=== PATIENT | male | born 1985 | race Two or more races ===

== ENCOUNTER 2017-12-21 07:57 | Emergency (ER) | payer SELFPAY ==
[~2017-12-21] VITALS: Ht 162.6 cm; Wt 73.0 kg
[2017-12-21 08:00] VITALS: BP 128/88
[2017-12-21] MEDS ORDERED: LIDOcaine 1.5% w/epinephrine 1:200,000 5ml ampul IJ ONE (08:15)
[2017-12-21] MEDS ORDERED: TETanus/Pertussis (Acell)/Diphther VAC/PF (Tdap-Adult) 0.5ml syringe IM ONE (08:15)
[2017-12-21] MEDS ORDERED: CEPH250T PO (08:39)
[2017-12-21] MEDS ORDERED: SULF1TAB49 PO (08:39)
== END 2017-12-21 09:14 | disposition home or self-care (01) ==
LOC: ER 07:57
DX: L02.414 Cutaneous abscess of left upper limb (principal)
CPT/HCPCS: 10060; 90471; 90715; 99284; A6266; A6449; J3490